=== PATIENT | female | born 1985 | race Caucasian/White ===

== ENCOUNTER → 2024-05-16 09:22 | Outpatient (CLI) | payer OTHER, MEDICAID, SELFPAY | PROVIDERS: Visit Provider Physician Assistant Surgical | DX: R30.0 Dysuria (principal); N94.9 Unspecified condition associated with female genital organs and menstrual cycle | CPT/HCPCS: 87086; 87210 ==

== ENCOUNTER → 2025-08-11 14:25 | Outpatient (CLI) | payer BC, SELFPAY ==
--- NOTE | 2025-08-11 14:26 | DI.CT.S_ITS ---
PROCEDURE: CT ABDOMEN PELVIS W CON INDICATIONS: r/o inguinal/femoral hernia, chronic pelvic pain TECHNIQUE: After the administration of intravenous contrast, axial sections acquired from the lung bases to the pubic symphysis. Coronal and sagittal reformats were performed. For radiation dose reduction, the following was used: automated exposure control, adjustment of mA and/or kV according to patient size. COMPARISON: None. FINDINGS: Image quality: Diagnostic. Lower Chest: Partially visualized right lower lobe pulmonary cyst measuring 2.1 cm (2/1). ABDOMEN: Liver: No solid mass. Gallbladder: Status post cholecystectomy. Biliary ducts: No biliary dilation. Pancreas: No ductal dilation. Spleen: Indeterminate 3.6 cm hypodensity in the anterior spleen with density measuring above simple fluid. Adrenal Glands: No adrenal nodules. Kidneys and Ureters: No hydronephrosis. Punctate nonobstructing stone in the left lower pole. No solid mass. No complex renal cystic lesion which requires follow up. Stomach and Bowel: Normal colonic caliber, without significant wall thickening. Colonic diverticulosis without evidence of acute diverticulitis. Normal appendix. Peritoneum: No abnormal intraperitoneal fluid. No free air. Ventral Wall: No significant ventral hernia. Abdominal Nodes: No retroperitoneal or mesenteric adenopathy by size criteria. Vessels: Aorta and inferior vena cava are normal in size. PELVIS: Pelvic Organs: Unremarkable. Bladder: No bladder wall thickening, accounting for underdistention. Pelvic Nodes: No enlarged lymph nodes. Miscellaneous: Small right inguinal hernia containing fat and small bowel. Bones: No aggressive osseous abnormality. IMPRESSION: Small right inguinal hernia containing fat and small bowel. Indeterminate 3.6 cm hypodensity in the anterior spleen, which may reflect a hemangioma. Recommend follow up MRI in 6-12 months. Dictated by: Elizabeth Mckenna M.D. on 08/12/2025 at 22:32 Approved by: Elizabeth Mckenna M.D. on 08/12/2025 at 22:39
== END ==
LOC: CT 14:26
PROVIDERS: PCP Physician Assistant; Referring Provider Physician Assistant; Visit Provider Obstetrics & Gynecology
DX: K40.90 Unilateral inguinal hernia, without obstruction or gangrene, not specified as recurrent (principal); R93.5 Abnormal findings on diagnostic imaging of other abdominal regions, including retroperitoneum; N20.0 Calculus of kidney; R10.20 Pelvic and perineal pain unspecified side; G89.29 Other chronic pain; R19.8 Other specified symptoms and signs involving the digestive system and abdomen; Z90.49 Acquired absence of other specified parts of digestive tract
CPT/HCPCS: 74177; Q9967

== ENCOUNTER 2025-09-28 07:48 | Day surgery (SDC) | payer BC, SELFPAY ==
[2025-09-20 11:52] VITALS: BMI 33.6
[2025-09-28] VITALS (10 sets, daily range): BP systolic 101–152; BP diastolic 58–89; PULSE 64–82; RESP 16–20; TEMP 36.4–36.6; O2SAT 92–98
[2025-09-28] MEDS: ACETAMINOPHEN IV 1,000 MG/100 ML VIAL 400 MG IV (08:07)
[2025-09-28] MEDS: LACTATED RINGERS 1,000 ML 42 ML IV ×2 (08:07→15:13)
[2025-09-28] MEDS: ALBUTEROL/IPRATROPIUM 3 ML AMPUL INH ×2 (08:07→13:41)
[2025-09-28] MEDS: SCOPOLAMINE 1 PATCH TOP (09:34)
--- NOTE | 2025-09-28 09:59 | PM.HP.IH.1 ---
History of Present Illness History of Present Illness Date Patient Seen: 09/28/25 Time Patient Seen: 09:59 Chief complaint: [facility] [place] Narrative: Kyara is a 40-year-old woman who presents with bilateral groin pain. She had a recent CT scan that showed a right inguinal hernia containing a loop of bowel. She also has a similar sensation of the left side and she is fairly confident she has a left inguinal hernia as well. She recently lost a significant amount of weight. She did speak to Dr. Wallis in a telehealth encounter about having a laparoscopic inguinal hernia repair but because of scheduling changes she has come in to have a robotic bilateral inguinal hernia repair with mesh here today. [facility] Medical History (Updated 09/28/25 @ 10:00 by Marshall Hinton MD) Left ventricular dilation Asthma Frequent PVCs Abnormal abdominal exam Chronic pelvic pain in female Surgical History (Updated 09/20/25 @ 12:09 by Gini Gastelum RN) History of tubal ligation Social History Smoking Status: Former smoker Meds Home Medications and Allergies Home Medications ?Medication ?Instructions ?Recorded ?Confirmed ?Type albuterol sulfate inhalation 05/16/24 05/16/24 History digoxin 125 mcg (0.125 mg) tablet 125 mcg PO DAILY 05/16/24 05/16/24 History fluticasone propion-salmeterol inhalation 05/16/24 05/16/24 History [Advair Diskus] ipratropium bromide [Atrovent HFA] inhalation 05/16/24 05/16/24 History lisinopril PO 05/16/24 05/16/24 History Allergies Allergy/AdvReac Type Severity Reaction Status Date / Time pineapple Allergy Tongue Verified 09/20/25 12:05 swelling hydrocodone AdvReac Nausea & Verified 09/20/25 12:05 Vomiting ketorolac (From Toradol) AdvReac GI Upset Verified 09/20/25 12:05 tramadol AdvReac GI Upset Verified 09/20/25 12:05 Exam Vital Signs (past 8 hours): - 09/28/25 08:33 Temperature 97.6 F Pulse Rate 76 Respiratory Rate 16 Blood Pressure 139/89 Pulse Oximetry 96 Oxygen Delivery Method Room Air Oxygen Delivery Method Room Air Const General: No acute distress Assessment & Plan Assessment and plan (1) Bilateral inguinal hernia: Qualifiers: Obstruction and gangrene presence: with obstruction but without gangrene Recurrence: non-recurrent Qualified Code(s): K40.00 - Bilateral inguinal hernia, with obstruction, without gangrene, not specified as recurrent Status: Acute Plan I described the risks benefits and steps of a robotic bilateral inguinal hernia repair with mesh and she would like to proceed. Time-Based Coding :: [TOTAL MINUTES] spent with patient and on the chart (including review of chart, obtaining history, exam, reviewing outside data, placing orders, documenting exam and treatment plan, and counseling patient) on [DATE]. [employer] Document charge(s): No
--- NOTE | 2025-09-28 10:49 | SUR.OPER ---
Supine on padded OR bed, Prone face pillow, head on pillow, arms padded and tucked at sides, IV sites padded, safety strap to upper torso, legs uncrossed, safety belt at thigh, tape over blanket over lower legs .
--- NOTE | 2025-09-28 12:47 | P.OP_ITS ---
Operative Date/Time/Diagnoses Date of procedure: 09/28/25 Time of procedure: 12:47 Pre-op diagnosis: Bilateral inguinal herniae Post-op diagnosis: same Procedure & Clinicians Procedure: Robotic bilateral inguinal hernia repair with mesh Same procedure(s) as scheduled: Yes Surgeon: Marshall Hinton Assisted?: Yes Motorized Squad Commanding Officer: Felipe Gloria Anesthesia Type: General Operative Notes Findings: Indirect right inguinal hernia, no significant left inguinal hernia Applied: none Estimated Blood Loss (mL): 9 Procedure in detail: The patient was given preoperative antibiotics. The patient was brought to the operating room, placed on the table in the supine position with the arms tucked and general anesthesia was induced. The abdomen was prepped and draped in the usual fashion. A time-out was performed. A 1 cm transverse incision was created superior to the umbilicus and dissection was carried down to the fascia. The fascia was scored transversely with cautery. The fascia was grasped with a Eri clamp to elevate the abdominal wall. A Peon clamp was used to barksdale the peritoneum. The 12 mm robotic port was placed and the abdomen was insufflated to 15 mmHg. The camera was inserted, there was no evidence of any injury from the entry. There was an obvious indirect right inguinal hernia. There was no sign of incarceration. There was no obvious left inguinal hernia. 8 mm ports were placed under direct vision in the mid left and mid right abdomen. The patient was positioned in Trendelenburg. The robot was docked. Dissection was started on the right side. The peritoneum was dissected off the right round ligament and the Santino's ligament was exposed. A large right Bard 3DMax mesh was brought in and placed over the defect with the medial edge overlapping the pubic symphysis. The mesh was secured to Santino's ligament with a single 3-0 Vicryl stitch. Next, a left peritoneal flap was created. The peritoneum was dissected off the left round ligament and the Santino's ligament was exposed. There was no obvious significant hernia on the left side. A large left Bard 3D max mesh was brought in and placed over the defect with the medial edge overlapping the pubic symphysis. The mesh was secured to Santino's ligament with a single 3-0 Vicryl stitch and another stitch was placed to connect the 2 meshes in the midline. Finally both peritoneal flaps were closed with a running 3-0 barbed suture. All of the sutures were removed and accounted for. The robot was undocked. The 8 mm ports were removed under direct vision. The abdomen was desufflated. The 12 mm port was removed. Additional local was injected into the fascia and the fascial incision was closed with 2 interrupted 0 Vicryl sutures. The skin incisions were closed with 4 Monocryl, Steri-Strips and Band-Aids. Felipe BUI provided assistance with exposure, retraction and closure of incisions. Complications: none Post-operative Condition: stable Disposition: PACU
[2025-09-28] MEDS: PROMETHAZINE 25 MG TABLET PO (14:37)
--- NOTE | 2025-09-28 14:50 | SUR.PHASEII ---
1410 assisted to w/c and voided x 1. back to bed with c/o more nausea. New orders received.
--- NOTE | 2025-09-28 15:12 | SUR.PHASEII ---
1500 - resting quietly. Resp even, unlabored. no further complaints of nausea/vomiting.
== END 2025-09-28 16:27 | disposition home or self-care (01) ==
PROVIDERS: PCP Physician Assistant; Referring Provider Surgery; Visit Provider Surgery
PROC: 0YQ54ZZ Repair Right Inguinal Region, Percutaneous Endoscopic Approach (ICD-10-PCS; CPT 49650; principal; 2025-09-28 09:45)
DX: K40.90 Unilateral inguinal hernia, without obstruction or gangrene, not specified as recurrent (principal); Z87.891 Personal history of nicotine dependence
CPT/HCPCS: 49650; 81025; S2900; C1781; J0131; J0689; J1100; J1171; J2060; J2250; J2405; J2704; J3010; J3490; J7120